=== PATIENT | female | born 1945 | race Caucasian/White ===

== ENCOUNTER 2017-12-03 05:55 | Day surgery (SDC) | payer MEDICARE ==
[2017-12-01 15:48] VITALS: BP 137/84
[~2017-12-03] VITALS: Ht 157.5 cm; Wt 55.2 kg
[~2017-12-03 05:55] MED LIST: CA C1TAB64 PO; METO25TA35 PO; MULT1TAB60 PO; OMEG-69 PO; RED600CA2 PO; UBID100C24 PO
[2017-12-03] MEDS ORDERED: CIPROFLOXACIN/PMX 400MG/200ML 200 ML IVPB ONE (07:00)
[2017-12-03] MEDS ORDERED: CHLORHEXIDINE 15 ML BOTTLE MM ONE (07:00)
[2017-12-03] MEDS ORDERED: LACTATED RINGERS 1,000 ML IV SCH (07:19)
[2017-12-03] MEDS ORDERED: PROPOFOL 10 MG/ML, 20ML ONE (07:35)
[2017-12-03] MEDS ORDERED: DIPHENHYDRAMINE 50 MG/ML, 1ML ONE (08:21)
[2017-12-03] MEDS ORDERED: MIDAZOLAM 1 MG/ML, 2ML IV PRN (08:30)
[2017-12-03] MEDS ORDERED: LABETALOL 5MG/ML, 20ML IV PRN (08:30)
[2017-12-03] MEDS ORDERED: DIPHENHYDRAMINE 50 MG/ML, 1ML IVPush ONE (08:30)
[2017-12-03] MEDS ORDERED: OXYcodone 5 MG/5 ML ORAL.SOL UDC PO PRN (08:30)
[2017-12-03] MEDS ORDERED: ONDANSETRON 2MG/ML, 2ML IVPush PRN (08:30)
[2017-12-03] MEDS ORDERED: ALBUTEROL SULFATE 2.5 MG/3 ML NPPB PRN (08:30)
[2017-12-03] MEDS ORDERED: morphine SULFATE 10 MG/ML, 1ML IV PRN (08:30)
[2017-12-03] MEDS ORDERED: FENTANYL PF 100 MCG/2ML IV PRN (08:30)
[2017-12-03] MEDS ORDERED: hydrALAzine 20 MG/ML, 1ML IV PRN (08:30)
[2017-12-03] MEDS ORDERED: MEPERIDINE/PF 25MG/0.5ML IVPush PRN (08:30)
[2017-12-03] MEDS ORDERED: PROMETHAZINE 12.5 MG SUPP PR PRN (08:30)
== END 2017-12-03 09:35 ==
LOC: OUT 05:55
PROVIDERS: ATTEND Internal Medicine Gastroenterology
DX: K86.2 Cyst of pancreas (principal); K21.9 Gastro-esophageal reflux disease without esophagitis; K31.7 Polyp of stomach and duodenum; I10 Essential (primary) hypertension; Z88.8 Allergy status to other drugs, medicaments and biological substances; Z88.1 Allergy status to other antibiotic agents; Z91.040 Latex allergy status
CPT/HCPCS: 43239; 43242; 88305; 93005; J1200; J2704; J7120